=== PATIENT | female | born 1985 | race African-American/Black ===

== ENCOUNTER 2016-11-03 19:50 | Inpatient (IN) | payer OTHER ==
[~2016-11-03] VITALS: Ht 160 cm; Wt 100.7 kg
[~2016-11-03 19:50] MED LIST: ALBU6.7H INH; AMOX875 PO; LORT5TAB PO; PRED20 PO; ZOFR4TAB3 SL
[2016-11-03] MEDS ORDERED: PREN29TA PO (20:48)
[2016-11-03] MEDS ORDERED: LIDOCAINE HCL 1% 50 ML VIAL I-DERMAL PRN (21:00)
[2016-11-03] MEDS ORDERED: ZOLPIDEM TARTRATE 10 MG TAB PO SCH (21:00)
[2016-11-03] MEDS ORDERED: NS 1000 ML IV PRN (21:00)
[2016-11-03] MEDS ORDERED: LACTATED RINGER'S 1000 ML BOLUS IV PRN (21:00)
[2016-11-03] MEDS ORDERED: OXYTOCIN 30 UNITS/NS 500ML PREMIX IV SCH (21:00)
[2016-11-03] MEDS ORDERED: OXYTOCIN 30 UNITS 500ML PREMIX IV ONE (21:00)
[2016-11-03] MEDS ORDERED: LIDOCAINE HCL 1% 50 ML VIAL INFIL PRN (21:00)
[2016-11-03] MEDS ORDERED: CITRIC ACID-SODIUM CITRATE LIQ 30 ML UDC PO SCH (21:00)
[2016-11-03] MEDS ORDERED: MINERAL OIL 10 ML VIAL TOP PRN (21:00)
[2016-11-03] MEDS ORDERED: ONDANSETRON HCL 4 MG/2 ML VIAL IV PRN (21:00)
[2016-11-03] MEDS ORDERED: NS 500 ML BOLUS IV PRN (21:00)
[2016-11-03] MEDS ORDERED: DINOPROSTONE 10 MG INSERT-LEAVE FOR 12 HOURS VAGINAL ONE (21:00)
[2016-11-03] MEDS: LACTATED RINGER'S 1000 ML IV SCH (21:09)
[2016-11-03 21:24] LABS: AUTOMATED NEUTROPHIL # 6.8 TH/MM3 (1.8-7.7); BASOPHIL # 0.1 TH/MM3 (0-0.2); BASOPHIL % 0.5 % (0.0-2.0); EOSINOPHIL % 0.5 % (0.0-4.0); HEMATOCRIT 33.1 % (35.0-46.0); HEMO FLAGS DIFF FINAL; LYMPH % 26.7 % (9.0-44.0); LYMPHOCYTE # 2.9 TH/MM3 (1.0-4.8); MEAN CELL VOLUME 84.4 FL (80.0-100.0); MEAN CORPUSCULAR HEMOGLOBIN 28.2 PG (27.0-34.0); MEAN CORPUSCULAR HGB CONC 33.4 % (32.0-36.0); MONO % 8.8 % (0.0-8.0); NEUT % 63.5 % (16.0-70.0); PLATELET COUNT 126 TH/MM3 (150-450); RED BLOOD COUNT 3.92 MIL/MM3 (4.00-5.30); RED CELL DISTRIBUTION WIDTH 14.5 % (11.6-17.2); WHITE BLOOD COUNT 10.8 TH/MM3 (4.0-11.0)
[2016-11-03 21:45] LABS: BACTERIA, URINE OCC /hpf; BLOOD, URINE SMALL (NEG); COMMENT (UR) CULTURE INDICATED; CULTURE IF INDICATED CULTURE INDICATED; GLUCOSE,URINE NEG (NEG); KETONE, URINE TRACE mg/dL (NEG); MUCUS URINE FEW /lpf (OCC); NITRITE,URINE NEG (NEG); PH, URINE 6.5 (5.0-8.5); SQUAMOUS EPITHELIAL CELL URINE 5 /hpf (0-5); URINE COLOR YELLOW (YELLW/STRAW)
[2016-11-03 22:00] VITALS: RESP 18
[2016-11-03 22:54] VITALS: RESP 18
[2016-11-03 23:00] VITALS: TEMP 98.4
[2016-11-03 23:13] VITALS: BP 134/71; PULSE 103
[2016-11-04] VITALS (45 sets, daily range): BP systolic 89–138; BP diastolic 23–115; PULSE 87–128; RESP 18–20; TEMP 98–99.4
[2016-11-04] MEDS ORDERED: ePHEDrine/NS 25 MG/5 ML SYR ONE (00:34)
[2016-11-04] MEDS ORDERED: fentaNYL 2MCG-BUPIV 0.125% INJ 100 ML ONE (00:34)
[2016-11-04] MEDS ORDERED: NO SYSTEM NARCOTICS XX PRN (02:15)
[2016-11-04] MEDS ORDERED: DO NOT ADMINISTER ANTICOAGULANTS XX PRN (02:15)
[2016-11-04] MEDS ORDERED: ePHEDrine/NS 25 MG/5 ML SYR IV PRN (02:15)
[2016-11-04] MEDS ORDERED: fentaNYL 2MCG-BUPIV 0.125% 100 ML EPIDURAL SCH (02:15)
[2016-11-04] MEDS ORDERED: OXYTOCIN 30 UNITS-500ML PREMIX 500 ML IV SCH (07:45)
--- NOTE | 2016-11-04 07:45 | PD.LABORPN ---
Subjective Subjective comfortable with epidural in place. heavy epidural Objective Vital Signs Vital Signs Date Time Temp Pulse Resp B/P Pulse Ox O2 Delivery O2 Flow Rate FiO2 11/04/16 06:30 109 18 108/61 11/04/16 06:01 115 100/62 11/04/16 05:58 18 11/04/16 05:45 18 11/04/16 05:30 99 122/68 11/04/16 05:15 18 11/04/16 05:00 106 104/54 11/04/16 04:45 18 11/04/16 04:30 126 99/55 11/04/16 04:15 20 11/04/16 04:13 89 93/79 11/04/16 04:01 117 89/23 11/04/16 03:45 18 11/04/16 03:31 107 89/51 11/04/16 03:30 18 11/04/16 03:16 128/103 11/04/16 03:00 106 18 117/64 11/04/16 02:45 128 120/63 11/04/16 02:30 87 11/04/16 02:30 128 127/75 11/04/16 02:20 20 11/04/16 02:20 126 11/04/16 02:15 114 118/64 11/04/16 02:15 107 11/04/16 02:10 106 114/67 11/04/16 02:10 100 11/04/16 02:05 105 11/04/16 02:05 107 11/04/16 02:05 118/64 11/04/16 02:00 107 11/04/16 02:00 98.0 11/04/16 02:00 107 124/70 11/04/16 01:55 113 11/04/16 01:55 113 115/69 11/04/16 01:53 18 11/04/16 01:50 115 11/04/16 01:50 108 129/65 11/04/16 01:45 103 130/80 11/04/16 01:45 108 11/04/16 01:43 18 11/04/16 01:42 112 137/81 11/04/16 01:00 18 11/04/16 00:34 20 11/04/16 00:00 18 Objective /-1 AROM clear \strip category 1 proven pelvis EFW 7 pounds Assessment/Plan Assessment and Plan scheduled induction elevated BMI anticipate can't walk or use ball with epidural so will be aggressive Allison Joy MD Nov 04, 2016 07:45
--- NOTE | 2016-11-04 08:06 | HHI.HP ---
HPI Chief Complaint iol Date Seen: Oct 31, 2016 Travel History International Travel<30 Days: No Contact w/Intl Traveler<30Days: No Known Affected Area: No History of Present Illness HPI pt is a w iup at 39w1d by first trimester u/s c/w lmp. She was seen in clinic on 10/31/16 and desired iol. Endorses _FM, neg regular contractions, or vb. Her obstetric hx is significant for prior shoulder dystocia with clavicular fracture and pph requiring blood transfusion. She is morbidly obeses, prediabetic, with an abn 1 hr but normal 3hr GTT this . She has gained 7 pounds this . /she has a posterior fibroid measuring 6.8 cm. Para: 1 : 2 History Past Medical History Narrative Medical prediabetic, h/o blood transfusion following pph Obstetric History Obstetric History G1 7 lb 11 oz, clavicular fracture, ?shoulder dystocia. hemorrhage. Past Surgical History Narrative Surgical breast biopsy colposcopy in her 20's Family History Family History: Negative Social History Alcohol Use: No Tobacco Use: No Substance Abuse: No Allergies-Medications (Allergen,Severity, Reaction): Coded Allergies: Iodine (Verified Allergy, Severe, HIVES, 11/03/16) Home Meds Active Scripts Hydrocodone-Acetaminophen 5-325 mg Tab1 Tab PO Q3H PRN (PAIN SCALE 1-5) #20 TAB Prov:Allison Joy MD 11/05/16 Reported Medications Vit-Iron Carbonyl ( Plus Iron 29-1 mg)1 Tab Tab1 Tab PO DAILY #30 TAB Ref 0 11/03/16 Review of Systems General / Constitutional: No: Fever, Weight Gain, Chills, Other Eyes: No: Diploplia, Blurred Vision, Visual changes, Pain, Photophobia HENT: No: Headaches, Vertigo, Lightheadedness Cardiovascular: No: Irregular Rhythm, Chest Pain or Discomfort, Palpitations, Tachycardia, Syncope, Varicosities, Edema, Cyanosis Respiratory: Cough, No: Short of Breath, Other Gastrointestinal: No: Nausea, Vomiting, Diarrhea Genitourinary: No: Decreased Urinary Output, Oliguria Musculoskeletal: No: Limited ROM, Weakness, Cramping, Edema, Pain Skin: No Rash, No Itching, No Dryness, No Lumps, No Change in Pigmentation, No Change in Nails, No Alopecia, No Lesions Neurologic: No: Weakness, Dizziness, Syncope, Focal Abnormalities, Coordination Problem, Headache, Slurred Speech, Seizures Psychiatric: No: Depression, Suicidal Ideations, Homicidal Ideation Endocrine: No: Heat Intolerance, Cold Intolerance, Polydipsia, Polyuria, Other Physical Exam Vital Signs Date Time Temp Pulse Resp B/P Pulse Ox O2 Delivery O2 Flow Rate FiO2 11/04/16 06:30 109 18 108/61 11/04/16 06:01 115 100/62 11/04/16 05:58 18 11/04/16 05:45 18 11/04/16 05:30 99 122/68 11/04/16 05:15 18 11/04/16 05:00 106 104/54 11/04/16 04:45 18 11/04/16 04:30 126 99/55 11/04/16 04:15 20 11/04/16 04:13 89 93/79 11/04/16 04:01 117 89/23 11/04/16 03:45 18 11/04/16 03:31 107 89/51 11/04/16 03:30 18 11/04/16 03:16 128/103 11/04/16 03:00 106 18 117/64 11/04/16 02:45 128 120/63 11/04/16 02:30 87 11/04/16 02:30 128 127/75 11/04/16 02:20 20 11/04/16 02:20 126 11/04/16 02:15 114 118/64 11/04/16 02:15 107 11/04/16 02:10 106 114/67 11/04/16 02:10 100 11/04/16 02:05 105 11/04/16 02:05 107 11/04/16 02:05 118/64 11/04/16 02:00 107 11/04/16 02:00 98.0 11/04/16 02:00 107 124/70 11/04/16 01:55 113 11/04/16 01:55 113 115/69 11/04/16 01:53 18 11/04/16 01:50 115 11/04/16 01:50 108 129/65 11/04/16 01:45 103 130/80 11/04/16 01:45 108 11/04/16 01:43 18 11/04/16 01:42 112 137/81 11/04/16 01:00 18 11/04/16 00:34 20 11/04/16 00:00 18 11/03/16 23:13 103 134/71 11/03/16 23:00 98.4 11/03/16 22:54 18 11/03/16 22:00 18 Narrative GENERAL: Well-nourished, well-developed patient. SKIN: Warm and dry. HEAD: Normocephalic and atraumatic. EYES: No scleral icterus. No injection or drainage. ENT: No nasal drainage noted. Mucous membranes pink. Airway patent. NECK: Supple, trachea midline. No JVD. CARDIOVASCULAR: Regular rate and rhythm without murmurs, gallops, or rubs. RESPIRATORY: Breath sounds equal bilaterally. No accessory muscle use. ABDOMEN/GI: Abdomen soft, non-tender, bowel sounds present, no rebound, no guarding Fundal Height: 40 GENITOURINARY: External Genitalia: intact and normal in appearance BUS glands: [-] Cervix: [-]ft.th..hi in clinic Dilatation: [-] Effacement: [-] Station: [-] Presentation: [-]cephalic Membranes: [intact Uterine Contractions: [-] FHT's: Category Category I on admission: [-] Baseline: [-] Reactive: [-] Variability: [-] Decels: [-] EXTREMITIES: No cyanosis or edema. BACK: Nontender without obvious deformity. No CVA tenderness. NEUROLOGICAL: Awake and alert. Motor and sensory grossly within normal limits. Five out of 5 muscle strength in all muscle groups. Normal speech. Data Data Vital Signs Reviewed: Yes Orders Admit To Inpatient (11/03/16 ) Code Status (11/03/16 20:41) Vital Signs (Adult) .Per protocol (11/03/16 20:41) Activity Oob Ad Minerva (11/03/16 20:41) ^ Heart (11/03/16 20:41) ^ Amnioinfusion (11/03/16 20:41) Urinary Catheter Management .ONCE (11/03/16 20:41) Complete Blood Count With Diff (11/03/16 20:41) Hold Clot (11/03/16 20:41) Abo/Rh Blood Type (11/03/16 20:41) Urinalysis - C+S If Indicated (11/03/16 20:41) Type And Screen (11/03/16 20:41) Resp Oxygen Non Rebreathe Mask (11/03/16 ) ^ Epidural / Intrathecal Infus (11/03/16 20:41) Us Ob Limited (11/03/16 ) Specimen To Be Collected PRN (11/03/16 20:41) Admit To Inpatient (11/03/16 ) Diet Regular Basic (11/04/16 Breakfast) ^ Labor Induction (11/03/16 20:44) ^ Vaginal Insert (11/03/16 20:44) ^ Vaginal Lavage (11/03/16 20:44) ^ Heart (11/03/16 20:44) Lactated Ringer's 1000 Ml Inj (Lr 1000 M (11/03/16 21:00) Lactated Ringer's 1000 Ml Inj (Lr 1000 M (11/03/16 21:00) Sodium Chlorid 0.9% 500 Ml Inj (Ns 500 M (11/03/16 21:00) Sodium Chlor 0.9% 1000 Ml Inj (Ns 1000 M (11/03/16 21:00) Lidocaine 1% Inj (50 Ml) (Xylocaine 1% I (11/03/16 21:00) Citric Acid-Sodium Citrate Liq (Bicitra (11/03/16 21:00) Ondansetron Inj (Zofran Inj) (11/03/16 21:00) Fentanyl Inj (Fentanyl Inj) (11/03/16 21:00) Fentanyl Inj (Fentanyl Inj) (11/03/16 21:00) Oxytocin 30 Units-500ml Premix (Pitocin (11/03/16 21:00) Lidocaine 1% Inj (50 Ml) (Xylocaine 1% I (11/03/16 21:00) Light Mineral Oil (Muri-Lube Oil) (11/03/16 21:00) Zolpidem (Ambien) (11/03/16 21:00) Oxytocin 30 Units-500ml Premix (Pitocin (11/03/16 21:00) Dinoprostone Vag Insert (Cervidil Vag In (11/03/16 21:00) Urine Culture (11/03/16 20:30) Fentanyl 2mcg-Bupiv 0.125% Inj (Fentanyl (11/04/16 00:34) Ephedrine/Ns 25 Mg/5 Ml Syr (Ephedrine/N (11/04/16 00:34) [facility] Information (11/04/16 02:15) [facility] [facility] [place] (11/04/16 02:15) Fentanyl Inj (Fentanyl Inj) (11/04/16 02:15) Fentanyl 2mcg-Bupiv 0.125% Inj (Fentanyl (11/04/16 02:15) Ephedrine/Ns 25 Mg/5 Ml Syr (Ephedrine/N (11/04/16 02:15) ^ Non Stress Test (11/04/16 07:45) Response To Medication .Post New Med Administration, Reaction (11/04/16 07:45) ^ Discontinue Medication (11/04/16 07:45) Oxytocin 30 Units-500ml Premix (Pitocin (11/04/16 07:45) Labs Laboratory Tests Test 11/03/16 11/03/16 20:30 20:50 Urine Color YELLOW Urine Turbidity HAZY Urine pH 6.5 Urine Specific [place] 1.032 Urine Protein 30 Urine Glucose (UA) NEG Urine Ketones TRACE Urine Occult Blood SMALL Urine Nitrite NEG Urine Bilirubin NEG Urine Urobilinogen 2.0 Urine Leukocyte Esterase LARGE Urine RBC 24 Urine WBC 9 Urine Squamous Epithelial 5 Cells Urine Bacteria OCC Urine Mucus FEW Microscopic Urinalysis Comment CULTURE INDICATED White Blood Count 10.8 Red Blood Count 3.92 Hemoglobin 11.0 Hematocrit 33.1 Mean Corpuscular Volume 84.4 Mean Corpuscular Hemoglobin 28.2 Mean Corpuscular Hemoglobin 33.4 Concent Red Cell Distribution Width 14.5 Platelet Count 126 Mean Platelet Volume 11.2 Neutrophils (%) (Auto) 63.5 Lymphocytes (%) (Auto) 26.7 Monocytes (%) (Auto) 8.8 Eosinophils (%) (Auto) 0.5 Basophils (%) (Auto) 0.5 Neutrophils # (Auto) 6.8 Lymphocytes # (Auto) 2.9 Monocytes # (Auto) 1.0 Eosinophils # (Auto) 0.0 Basophils # (Auto) 0.1 CBC Comment DIFF FINAL Differential Comment Blood Type O POSITIVE Antibody Screen NEGATIVE Band and Hold Date/Time Procedure Status Source Growth 11/03/16 20:30 Urine Culture Received Urine Clean Catch Pending Assessment/Plan Assessment and Plan 31 yo with iup at 39w1 d here for scheduled iol 1) iol started with cervidil overnight. arom and pitocin as needed. discussed iol canbe long process and can increase risk of cd. pt aware of risks anddesires to proceed. 2) prediabetic, abn 1 hr gct but normal 3hr 3) fibroid uterus 4) h/o possible shoulder dystocia with clavicular fracture of , and subsequent hemorrhage. Discharge Planning 2-3 days per routine Yuni Schulz MD Nov 04, 2016 08:06 anddesires to proceed. 2) prediabetic, abn 1 hr gct but normal 3hr 3) fibroid uterus 4) h/o possible shoulder dystocia with clavicular fracture of , and subsequent hemorrhage. Discharge Planning 2-3 days per routine Yuni Schulz MD Nov 04, 2016 08:06
[2016-11-04] MEDS: LACTATED RINGER'S 1000 ML IV SCH (08:44)
--- NOTE | 2016-11-04 11:51 | PD.OB.DELI ---
Anesthesia: Epidural Episiotomy: None Vaginal Delivery: Normal Presentation: Occiput anterior Nuchal Cord: x1 Delayed cord clamping (45 sec): Yes : Female One Minute : 9 Five Minute : 9 Weight: 7 Care: Suctioned, Spontaneous crying Placenta: Spontaneous delivery Laceration: No lacerations Allison Joy MD Nov 04, 2016 11:51
[2016-11-04] MEDS ORDERED: BENZOCAINE 20% TOPICAL SPRAY 60 ML CAN TOPICAL PRN (12:00)
[2016-11-04] MEDS ORDERED: WITCH HAZEL 50%/GLYCERIN 12.5% 40 PAD JAR TOPICAL PRN (12:00)
[2016-11-04] MEDS ORDERED: ALUMINUM/MAGNESIUM/SIMETH 30 ML CUP PO PRN (12:00)
[2016-11-04] MEDS ORDERED: SODIUM CHLORIDE 0.9% FLUSH 5 ML FLUSH IV PRN (12:00)
[2016-11-04] MEDS ORDERED: ONDANSETRON ODT 4 MG TAB PO PRN (12:00)
[2016-11-04] MEDS ORDERED: ZOLPIDEM TARTRATE 5 MG TAB PO PRN (12:00)
[2016-11-04] MEDS ORDERED: ACETAMINOPHEN 325 MG TAB PO PRN (12:00)
[2016-11-04] MEDS ORDERED: MEASLES, MUMPS, RUBELLA VACCINE 0.5 ML VIAL SQ ONE (16:00)
[2016-11-04] MEDS ORDERED: DIPHTH/TETANUS/ACEL PERTUSSIS (BOOSTER) 0.5 ML VIAL/PFS IM ONE (16:00)
[2016-11-04] MEDS: IBUPROFEN 600 MG TAB PO PRN (20:10)
[2016-11-04] MEDS ORDERED: SODIUM CHLORIDE 0.9% FLUSH 5 ML FLUSH IV SCH (21:00)
[2016-11-04] MEDS ORDERED: ACETAMINOPHEN/HYDROcodone 325 MG/5 MG TAB PO PRN (21:00)
[2016-11-04] MEDS: ACETAMINOPHEN/HYDROcodone 325 MG/10 MG TAB PO PRN (21:21)
[2016-11-05] MEDS: ACETAMINOPHEN/HYDROcodone 325 MG/10 MG TAB PO PRN ×4 (01:19→19:40)
--- NOTE | 2016-11-05 07:23 | HHI.OB ---
Subjective Post Day: 1 Remarks doing well needed norco for back pain nursing Objective Vitals/I&O Vital Signs Date Time Temp Pulse Resp B/P Pulse Ox O2 Delivery O2 Flow Rate FiO2 11/04/16 20:00 98.1 98 20 117/75 11/04/16 15:00 99.4 111 18 115/64 11/04/16 14:01 111 132/70 11/04/16 13:00 116 115/67 11/04/16 12:13 98.0 11/04/16 12:01 120 105/51 11/04/16 12:00 18 11/04/16 11:55 107 115/46 11/04/16 11:31 109 138/115 11/04/16 11:01 107 137/73 11/04/16 09:01 110 100/58 11/04/16 08:52 18 11/04/16 08:43 18 11/04/16 08:30 96 111/71 Objective Remarks GENERAL: Well-nourished, well-developed patient. CARDIOVASCULAR: Regular rate and rhythm without murmurs, gallops, or rubs. RESPIRATORY: Breath sounds equal bilaterally. No accessory muscle use. ABDOMEN/GI: Abdomen soft, non-tender. Fundus: Firm, non-tender at umbilicus. GENITOURINARY: Light to moderate bleeding. EXTREMITIES: No cyanosis or edema, non-tender, without signs of DVT. Medications and IVs Current Medications Medications (Trade) Dose Ordered Sig/Pamela Route Start Time Stop Time Status Last Admin Lactated Ringer's 1,000 ml @ 125 mls/hr Q8H IV 11/03/16 21:00 11/04/16 08:44 Lactated Ringer's 1,000 ml @ 3,000 mls/hr BOLUS PRN IV 11/03/16 21:00 11/03/16 21:09 Sodium Chloride 500 ml @ 1,000 mls/hr BOLUS PRN IV 11/03/16 21:00 (NS 1000 ml Inj) 1,000 ml @ 100 mls/hr Q10H PRN IV 11/03/16 21:00 (Zofran Inj) 4 mg Q6H PRN IV 11/03/16 21:00 (fentaNYL INJ) 50 mcg Q1H PRN IV PUSH 11/03/16 21:00 (fentaNYL INJ) 100 mcg Q1H PRN IV PUSH 11/03/16 21:00 11/04/16 01:10 (Muri-Lube Oil) 10 ml UNSCH PRN TOP 11/03/16 21:00 Zolpidem Tartrate 10 mg 10 mg HS PO 11/03/16 21:00 11/03/16 23:33 Oxytocin 500 ml @ 0 mls/hr TITRATE IV 11/03/16 21:00 Fentanyl/ Bupivacaine HCl 100 ml @ 0 mls/hr TITRATE EPIDURAL 11/04/16 02:15 11/04/16 08:43 (Pitocin 30 Units-NS 500 ml Premix) 500 ml @ 0 mls/hr TITRATE IV 11/04/16 07:45 11/04/16 08:06 (NS Flush) 2 ml BID IV 11/04/16 21:00 (NS Flush) 2 ml UNSCH PRN IV 11/04/16 12:00 (Tylenol) 650 mg Q4H PRN PO 11/04/16 12:00 (Motrin) 600 mg Q6H PRN PO 11/04/16 12:00 11/04/16 20:10 (Americaine 20% Top Spr) 1 spray Q4H PRN TOPICAL 11/04/16 12:00 (Tucks Pads) 1 applic QID PRN TOPICAL 11/04/16 12:00 (Gerri-Colace) 2 tab Q12H PRN PO 11/04/16 12:00 (Ambien) 5 mg HS PRN PO 11/04/16 12:00 (Mag-Al Plus Susp Liq) 15 ml Q8H PRN PO 11/04/16 12:00 (Zofran Odt) 4 mg Q6H PRN PO 11/04/16 12:00 ([place] 5-325 Mg) 1 tab Q3H PRN PO 11/04/16 21:00 ([place] 10-325 Mg) 1 tab Q4H PRN PO 11/04/16 21:00 11/05/16 01:19 Assessment/Plan Assessment and Plan doing well PPD1 norco as needed home in am Discharge Planning 2-3 days per routine Allison Joy MD Nov 05, 2016 07:23
[2016-11-05] MEDS ORDERED: HYDR-3516 PO (07:25)
--- NOTE | 2016-11-05 07:25 | HHI.DCPOC ---
Discharge Care Plan Report Symptoms to Your Doctor -Temperate above 100.5 degrees -Redness, of incision or excessive or foul smelling drainage -Unusual pain or calf pain -Increased vaginal bleeding -Painful or difficulty urinating -Feelings of extreme sadness or anxiety after 2 weeks Goals to Promote Your Health * To prevent worsening of your condition and complications * To maintain your health at the optimal level Directions to Meet Your Goals Take your medications as prescribed Follow your dietary instruction Follow activity as directed Ensure plenty of rest for recovery Drink fluids for hydration Keep your appointments as scheduled Take your immunizations and boosters as scheduled If your symptoms worsen call your PCP, if no PCP go to Urgent Care Center or Emergency Room Smoking is Dangerous to Your Health. Avoid second hand smoke Call the 24-hour crisis hotline for domestic abuse at Allison Joy MD Nov 05, 2016 07:25
[2016-11-05 07:52] VITALS: BP 115/78; PULSE 83; RESP 18; TEMP 97.6
[2016-11-05] MEDS: IBUPROFEN 600 MG TAB PO PRN (15:16)
[2016-11-05] MEDS: DOCUSATE SODIUM 50 MG/SENNA 8.6 MG TAB PO PRN (15:16)
[2016-11-05 20:00] VITALS: BP 139/80; PULSE 89; RESP 18; TEMP 98.6; O2SAT 100
[2016-11-06] MEDS: DOCUSATE SODIUM 50 MG/SENNA 8.6 MG TAB PO PRN (03:49)
[2016-11-06] MEDS: IBUPROFEN 600 MG TAB PO PRN ×2 (03:50→10:32)
[2016-11-06] MEDS: ACETAMINOPHEN/HYDROcodone 325 MG/10 MG TAB PO PRN (03:50)
[2016-11-06 08:25] VITALS: BP 105/73; PULSE 94; RESP 16; TEMP 98.1
--- NOTE | 2016-11-06 08:28 | HHI.OB ---
Subjective Post Day: 2 Remarks no complaints Objective Vitals/I&O Vital Signs Date Time Temp Pulse Resp B/P Pulse Ox O2 Delivery O2 Flow Rate FiO2 11/05/16 20:00 89 18 139/80 100 11/05/16 20:00 98.6 Objective Remarks GENERAL: Well-nourished, well-developed patient. CARDIOVASCULAR: Regular rate and rhythm without murmurs, gallops, or rubs. RESPIRATORY: Breath sounds equal bilaterally. No accessory muscle use. ABDOMEN/GI: Abdomen soft, non-tender. Fundus: Firm, non-tender at umbilicus. GENITOURINARY: Light to moderate bleeding. EXTREMITIES: No cyanosis or edema, non-tender, without signs of DVT. Medications and IVs Current Medications Medications (Trade) Dose Ordered Sig/Pamela Route Start Time Stop Time Status Last Admin Lactated Ringer's 1,000 ml @ 125 mls/hr Q8H IV 11/03/16 21:00 11/04/16 08:44 Lactated Ringer's 1,000 ml @ 3,000 mls/hr BOLUS PRN IV 11/03/16 21:00 11/03/16 21:09 Sodium Chloride 500 ml @ 1,000 mls/hr BOLUS PRN IV 11/03/16 21:00 (NS 1000 ml Inj) 1,000 ml @ 100 mls/hr Q10H PRN IV 11/03/16 21:00 (Zofran Inj) 4 mg Q6H PRN IV 11/03/16 21:00 (fentaNYL INJ) 50 mcg Q1H PRN IV PUSH 11/03/16 21:00 (fentaNYL INJ) 100 mcg Q1H PRN IV PUSH 11/03/16 21:00 11/04/16 01:10 (Muri-Lube Oil) 10 ml UNSCH PRN TOP 11/03/16 21:00 Zolpidem Tartrate 10 mg 10 mg HS PO 11/03/16 21:00 11/03/16 23:33 Oxytocin 500 ml @ 0 mls/hr TITRATE IV 11/03/16 21:00 Fentanyl/ Bupivacaine HCl 100 ml @ 0 mls/hr TITRATE EPIDURAL 11/04/16 02:15 11/04/16 08:43 (Pitocin 30 Units-NS 500 ml Premix) 500 ml @ 0 mls/hr TITRATE IV 11/04/16 07:45 11/04/16 08:06 (NS Flush) 2 ml BID IV 11/04/16 21:00 (NS Flush) 2 ml UNSCH PRN IV 11/04/16 12:00 (Tylenol) 650 mg Q4H PRN PO 11/04/16 12:00 (Motrin) 600 mg Q6H PRN PO 11/04/16 12:00 11/06/16 03:50 (Americaine 20% Top Spr) 1 spray Q4H PRN TOPICAL 11/04/16 12:00 (Tucks Pads) 1 applic QID PRN TOPICAL 11/04/16 12:00 (Gerri-Colace) 2 tab Q12H PRN PO 11/04/16 12:00 11/06/16 03:49 (Ambien) 5 mg HS PRN PO 11/04/16 12:00 (Mag-Al Plus Susp Liq) 15 ml Q8H PRN PO 11/04/16 12:00 (Zofran Odt) 4 mg Q6H PRN PO 11/04/16 12:00 ([place] 5-325 Mg) 1 tab Q3H PRN PO 11/04/16 21:00 ([place] 10-325 Mg) 1 tab Q4H PRN PO 11/04/16 21:00 11/06/16 03:50 Assessment/Plan Assessment and Plan doing well PPD2 norco as needed home today Discharge Planning per routine Attending Attestation pt seen by Tracey Cotton MD Nov 06, 2016 08:28
== END 2016-11-06 13:12 | disposition home or self-care (01) | DRG 775 ==
LOC: H2EB 19:50 → H1EA 11-04 14:21
PROVIDERS: ADMIT Obstetrics & Gynecology; ATTEND Obstetrics & Gynecology
PROC: 10E0XZZ Delivery of Products of Conception, External Approach (ICD-10-PCS; principal; 2016-11-04)
PROC: 3E0P7GC Introduction of Other Therapeutic Substance into Female Reproductive, Via Natural or Artificial Opening (ICD-10-PCS; 2016-11-04)
DX: O99.214 Obesity complicating childbirth (principal); E66.01 Morbid (severe) obesity due to excess calories; Z68.39 Body mass index [BMI] 39.0-39.9, adult; Z3A.39 39 weeks gestation of pregnancy; Z37.0 Single live birth; O34.13 Maternal care for benign tumor of corpus uteri, third trimester; D25.9 Leiomyoma of uterus, unspecified
CPT/HCPCS: 59025; 81001; 85025; 86850; 86900; 86901; 87086; J2590; J3010; J7120